=== PATIENT | female | born 1995 | race Caucasian/White ===

== ENCOUNTER 2023-04-27 21:39 | Emergency (ER) | payer BC ==
[2023-04-27] MEDS ORDERED: Boostrix 0.5 ML (Tdap) VIAL (>/=7 yrs of age) ONE (21:55)
[2023-04-27] MEDS ORDERED: Lidocaine 1% (PF) 30 ML VIAL ONE (21:55)
[2023-04-27] MEDS ORDERED: Bacitracin 1 PK ONE (22:36)
== END 2023-04-27 22:43 | disposition home or self-care (01) ==
LOC: NAV ERS 21:39
DX: S91.312A Laceration without foreign body, left foot, initial encounter (principal); W22.8XXA Striking against or struck by other objects, initial encounter; Z87.891 Personal history of nicotine dependence
CPT/HCPCS: 12001; 90471; 90715; J2001